=== PATIENT | male | born 1980 | race Caucasian/White ===

== ENCOUNTER → 2023-07-30 10:44 | Outpatient (BNVA) | payer OTHER, SELFPAY | PROVIDERS: PCP Internal Medicine; Visit Provider Internal Medicine | DX: M75.42 Impingement syndrome of left shoulder (principal) | CPT/HCPCS: 99203 ==

== ENCOUNTER 2023-10-08 14:00 | Outpatient (RCR) | payer OTHER, SELFPAY ==
--- NOTE | 2023-08-08 09:05 | MHC.PT.EP ---
[facility] [place] Office [place] Office [place] Office [address] [phone] F: [phone] F: [phone] F: [phone] F: [phone] Physical Therapy Plan of Care Date of Evaluation: 08/06/23 Date of Surgery: n/a Diagnosis: L AC joint DJD, supraspinatus tendonosis Assessment: Pt is a pleasant 43yo M who presents to PT with left shoulder pain after snow removal in March. Pt presents to PT with current impairments in pain, decreased L shoulder ROM, decreased L UE strength, soft tissue restrictions, and impaired posture. He is limited functionally by lifting, reaching, external rotation, reaching behind back, and overhead ADLs. He is an excellent candidate for skilled PT in order to address current impairments to facilitate return to PLOF. He is recommended to be seen 2x/week for 4 weeks and will be reassessed at that time Frequency and Duration: The patient will be seen 2x/week for 4 weeks Short Term Goals: Pt will be I with HEP to promote self management of symptoms Pt will improve left shoulder flexion by at least 10 degrees Senior Living Goals: Pt will achieve full ROM and strength all planes of left shoulder with minimal to no discomfort Pt will perform overhead ADLs with minimal to no compensation Pt will demonstrate improvements in function as evidenced by statistically significant improvement in SPADI outcome measure Treatment Plan: Modalities to reduce pain, spasms and effusion. Manual therapy to restore motion and function. Therapeutic exercise to improve strength and flexibility. Neuromuscular re-education for posture and balance. Therapeutic activities to return to functional activities of daily living. Electronically signed by: Maria G Sommer, PT, DPT Please sign and return to therapist. Thank you for your referral.
--- NOTE | 2023-10-08 16:24 | MHC.PT.DC ---
[facility] [place] Office [place] Office [place] Office [address] [phone] F: [phone] F: [phone] F: [phone] F: [phone] Physical Therapy Discharge Report Diagnosis: L AC joint DJD, supraspinatus tendonosis Date of Surgery: n/a Date of Evaluation: 08/06/23 Date of Discharge: 10/08/23 Treatments to Date: 14 Cancellations to Date: No Shows to Date: Discharge Status: Independent with HEP Recommend MD Follow-up Discharge Summary: Pt was seen for skilled PT from 08/06/23-10/08/23. He has made overall fair progress since SOC. He continues to have pain and limited ROM of left shoulder. He is scheduled for left shoulder surgery on 11/03/23. At this time he is independent with HEP and is being D/C to HEP as he has reached a functional plateau. I provided pt with printed, updated copy of HEP and theraband. No further questions or concerns reported for PT at end of session Electronically signed by: Maria G Sommer, PT, DPT Please sign and return to therapist. Thank you for your referral.
== END 2023-10-08 16:23 | disposition home or self-care (01) ==
LOC: HO.PT 14:00
PROVIDERS: PCP Internal Medicine; Visit Provider Internal Medicine
DX: M77.8 Other enthesopathies, not elsewhere classified (principal); M19.012 Primary osteoarthritis, left shoulder
CPT/HCPCS: 97110; 97162